=== PATIENT | male | born 1995 | race Two or more races ===

== ENCOUNTER 2019-03-12 11:15 | Emergency (ER) | payer OTHER ==
[~2019-03-12] VITALS: Ht 170.2 cm; Wt 95.3 kg
[2019-03-12 11:21] VITALS: Ht 170.2 cm; Wt 95.3 kg
[2019-03-12 12:29] VITALS: BP 143/65
== END 2019-03-12 12:29 | disposition home or self-care (01) ==
LOC: ED 11:15
DX: L01.00 Impetigo, unspecified (principal); J45.909 Unspecified asthma, uncomplicated